=== PATIENT | female | born 2000 | race Two or more races ===

== ENCOUNTER → 2021-12-22 | Outpatient (CLI) | payer MEDICAID ==
[2021-12-22 09:41] LABS: Basophils # (auto) 0 10 ^3/uL (0-0.2); Basophils % (auto) 0.2 % (0.0-2.0); Eosinophils # (auto) 0.1 10 ^3/uL (0-0.8); Eosinophils % (auto) 0.7 % (0.0-7.0); Hematocrit 34.7 % (36.0-46.0); Hemoglobin 11.5 g/dL (12.2-16.2); Mean Corpuscular Hemoglobin 27.5 pg (28.0-32.0); Mean Corpuscular Volume 83.5 fL (80.0-100.0); Monocytes # (auto) 0.5 10 ^3/uL (0-1.3); Monocytes % (auto) 6.8 % (0.0-12.0); Neutrophils # (auto) 6.2 10 ^3/uL (1.6-8.6); Neutrophils % (auto) 79.3 % (37.0-80.0); Nucleated Red Blood Cells % 0.1 %; Red Blood Cells 4.16 10^6/uL (4.0-5.20); Red Cell Distribution Width 15.2 % (11.8-14.3); White Blood Cell 7.9 10^3/uL (4.4-10.8)
== END | disposition home or self-care (01) ==
LOC: LAB 09:24
PROVIDERS: ATTEND Obstetrics & Gynecology
DX: Z34.80 Encounter for supervision of other normal pregnancy, unspecified trimester (principal); Z3A.00 Weeks of gestation of pregnancy not specified
CPT/HCPCS: 36415; 82951; 85025; 86850; 86900; 86901

== ENCOUNTER → 2022-02-23 | Outpatient (CLI) | payer MEDICAID ==
[2022-02-23 10:33] LABS: Basophils # (auto) 0 10 ^3/uL (0-0.2); Basophils % (auto) 0.4 % (0.0-2.0); Eosinophils # (auto) 0.1 10 ^3/uL (0-0.8); Hematocrit 36.7 % (36.0-46.0); Hemoglobin 12.1 g/dL (12.2-16.2); Lymphocytes # (auto) 0.9 10 ^3/uL (0.4-5.4); Lymphocytes % (auto) 13.3 % (10.0-50.0); Mean Corpuscular Hemoglobin 28.2 pg (28.0-32.0); Mean Corpuscular Volume 85.5 fL (80.0-100.0); Monocytes # (auto) 0.5 10 ^3/uL (0-1.3); Monocytes % (auto) 7.1 % (0.0-12.0); Neutrophils # (auto) 5.4 10 ^3/uL (1.6-8.6); Neutrophils % (auto) 78.2 % (37.0-80.0); Nucleated Red Blood Cells % 0.3 %; Red Blood Cells 4.29 10^6/uL (4.0-5.20); White Blood Cell 6.9 10^3/uL (4.4-10.8)
[2022-02-24 07:06] LABS: RPR Non Reactive (Non Reactive)
== END | disposition home or self-care (01) ==
LOC: LAB 09:29
PROVIDERS: ATTEND Obstetrics & Gynecology
DX: Z34.80 Encounter for supervision of other normal pregnancy, unspecified trimester (principal); Z3A.00 Weeks of gestation of pregnancy not specified
CPT/HCPCS: 36415; 84112; 85025; 86592

== ENCOUNTER 2022-03-06 14:00 | Observation (INO) | payer MEDICAID ==
[~2022-03-06] VITALS: Ht 165.1 cm; Wt 85.3 kg
[2022-03-06] MEDS ORDERED: FERR-20 PO (15:25)
[2022-03-06] MEDS ORDERED: PREN-96 PO (15:25)
[2022-03-06] MEDS ORDERED: ALBUAER3 IN (16:03)
== END 2022-03-06 16:15 | disposition home or self-care (01) ==
LOC: LDRP 14:00
PROVIDERS: ADMIT Obstetrics & Gynecology; ATTEND Obstetrics & Gynecology
DX: O41.03X0 Oligohydramnios, third trimester, not applicable or unspecified (principal); Z3A.37 37 weeks gestation of pregnancy
CPT/HCPCS: 59025; 76818; 81002; 94760; G0378

== ENCOUNTER 2022-03-08 13:42 | Observation (INO) | payer MEDICAID ==
[~2022-03-08 13:42] MED LIST: ALBUAER3 IN; FERR-20 PO; PREN-96 PO
== END 2022-03-08 15:37 | disposition home or self-care (01) ==
LOC: UNDOADMOB 14:10 → LDRP 14:10
PROVIDERS: ADMIT Obstetrics & Gynecology; ATTEND Obstetrics & Gynecology
DX: O42.92 Full-term premature rupture of membranes, unspecified as to length of time between rupture and onset of labor (principal); Z3A.37 37 weeks gestation of pregnancy
CPT/HCPCS: 59025; 76818; 81002; 94760; G0378

== ENCOUNTER 2022-03-20 10:28 | Observation (INO) | payer MEDICAID | END 2022-03-20 12:05 | disposition home or self-care (01) | LOC: LDRP 10:28 | PROVIDERS: ADMIT Obstetrics & Gynecology; ATTEND Obstetrics & Gynecology | DX: O41.03X0 Oligohydramnios, third trimester, not applicable or unspecified (principal); Z3A.39 39 weeks gestation of pregnancy | CPT/HCPCS: 59025; 76818; 81002; 94760; G0378 ==

== ENCOUNTER 2022-03-22 09:57 | Inpatient (IN) | payer MEDICAID ==
[~2022-03-22] VITALS: Ht 162.6 cm; Wt 79.8 kg
[2022-03-22] MEDS ORDERED: PROMETHAZINE HCL 25 MG/ML 1ML IV PRN (10:45)
[2022-03-22] MEDS ORDERED: DERMOPLAST 60ML BOTTLE TOP PRN (10:45)
[2022-03-22] MEDS ORDERED: BUTORPHANOL TARTRATE 2 MG/1 ML VIAL IV PRN ×2 (10:45)
[2022-03-22] MEDS ORDERED: TERBUTALINE SULFATE 1 MG/ML 1ML VIAL SC PRN (10:45)
[2022-03-22] MEDS ORDERED: PHISODERM TOP SOLN 240ML BTL TOP PRN (10:45)
[2022-03-22] MEDS ORDERED: LIDOCAINE 2%HCL (LOCAL ANESTH.) INJ 20ML MDV IJ PRN (10:45)
[2022-03-22] MEDS ORDERED: WITCH HAZEL-GLYCERIN PAD TOP PRN (10:45)
[2022-03-22] MEDS ORDERED: LACT. RINGERS/OXYTOCIN 20UNITS 500 ML IV ONE ×2 (10:45→11:15)
[2022-03-22 11:05] LABS: Urine WBC None Seen /hpf (0 - 5)
[2022-03-22 11:19] LABS: Basophils # (auto) 0 10 ^3/uL (0-0.2); Basophils % (auto) 0.3 % (0.0-2.0); Eosinophils # (auto) 0 10 ^3/uL (0-0.8); Eosinophils % (auto) 0.4 % (0.0-7.0); Hematocrit 37.7 % (36.0-46.0); Hemoglobin 12.6 g/dL (12.2-16.2); Lymphocytes # (auto) 0.9 10 ^3/uL (0.4-5.4); Lymphocytes % (auto) 10.6 % (10.0-50.0); Mean Corpuscular Hemoglobin 28.8 pg (28.0-32.0); Mean Corpuscular Hgb Conc. 33.5 g/dL (32.0-36.0); Mean Corpuscular Volume 85.9 fL (80.0-100.0); Monocytes # (auto) 0.6 10 ^3/uL (0-1.3); Monocytes % (auto) 7.1 % (0.0-12.0); Neutrophils # (auto) 6.6 10 ^3/uL (1.6-8.6); Neutrophils % (auto) 81.6 % (37.0-80.0); Nucleated Red Blood Cells % 0.2 %; Red Blood Cells 4.39 10^6/uL (4.0-5.20); Red Cell Distribution Width 17.5 % (11.8-14.3)
[2022-03-22 11:22] LABS: Urine Bacteria NONE SEEN /hpf (None Seen); Urine Blood Negative /uL (Negative); Urine Specific Gravity 1.003 (1.001-1.035)
[2022-03-22 11:36] LABS: INR 0.93 (0.9-1.15); Partial Thromboplastin Time 31.3 sec (24.6-33.4)
[2022-03-22] MEDS ORDERED: ROPIVACAINE HCL 200 ML EPI SCH ×2 (11:45→12:30)
[2022-03-22] MEDS ORDERED: NALOXONE HCL 0.4 MG/ML VIAL IV ONE (11:45)
[2022-03-22] MEDS ORDERED: LACTATED RINGER'S 1,000 ML IV ONE (11:45)
[2022-03-22] MEDS ORDERED: ePHEDrine SULFATE 50 MG/ML AMP IV ONE (11:45)
[2022-03-22 12:13] LABS: Alcohol, Urine < 3.0 mg/dL (0-10); Amphetamine Screen, Urine NEGATIVE (NEGATIVE); Barbiturate Scree,Urine NEGATIVE (NEGATIVE); Benzodiazephine Screen, Urine NEGATIVE (NEGATIVE); Cannabinoid Screen, Urine NEGATIVE (NEGATIVE); Cocaine Screen, Urine NEGATIVE (NEGATIVE); Opiate Scree,Urine NEGATIVE (NEGATIVE); Phencyclidine Screen, Urine NEGATIVE (NEGATIVE)
[2022-03-22 12:24] LABS: Albumin 2.8 g/dL (3.4-5.0); BUN/Creatinine Ratio 12.3; Bilirubin, Total 0.4 mg/dL (0.2-1.0); Calcium 8.6 mg/dL (8.5-10.1); Total Protein 7.1 g/dL (6.4-8.2)
[2022-03-22] MEDS: LACTATED RINGER'S 1,000 ML IV SCH ×2 (12:26→16:03)
[2022-03-22] MEDS ORDERED: ONDANSETRON HCL 4 MG/2 ML VIAL IV PRN (15:00)
[2022-03-22] MEDS ORDERED: miSOPROStol 100 mcg TAB SL PRN (15:00)
[2022-03-22] MEDS ORDERED: DIPHENOXYLATE W/ATROPINE 2.5 MG TAB PO PRN (15:00)
[2022-03-22] MEDS ORDERED: CARBOPROST TROMETHAMINE 250 MCG/1ML VIAL IM PRN (15:00)
[2022-03-22] MEDS ORDERED: METHYLERGONOVINE MALEATE 0.2 MG/ML AMP IM PRN (15:00)
[2022-03-22] MEDS ORDERED: TRANEXAMIC ACID 1,000 MG in SODIUM CHL 0.9% 100 ML IV PRN (15:00)
[2022-03-22] MEDS ORDERED: diphenhdrAMINE HCL 50 MG/1 ML VL IV PRN (15:00)
[2022-03-22] MEDS ORDERED: ACETAMINOPHEN 650 MG RECT SUPP PR PRN (15:00)
[2022-03-22] MEDS ORDERED: ACETAMINOPHEN 325 MG TAB PO PRN (16:45)
[2022-03-22] MEDS ORDERED: ONDANSETRON ODT 4 MG TAB PO PRN (16:45)
[2022-03-22 19:00] VITALS: BP 132/84
[2022-03-22] MEDS: IBUPROFEN 600 MG TAB PO PRN (19:33)
[2022-03-22] MEDS ORDERED: DOCUSATE SOD 100 MG CAP PO SCH (22:00)
[2022-03-22 23:00] VITALS: BP 106/68
[2022-03-22] MEDS ORDERED: TETANUS-DIPTH-ACEL PERTUSSIS 0.5ML SYR Tdap IM ONE (23:45)
[2022-03-23] VITALS (7 sets, daily range): BP systolic 105–133; BP diastolic 68–76
[2022-03-23 05:42] LABS: Basophils # (auto) 0 10 ^3/uL (0-0.2); Basophils % (auto) 0.3 % (0.0-2.0); Eosinophils # (auto) 0.1 10 ^3/uL (0-0.8); Hematocrit 37.8 % (36.0-46.0); Hemoglobin 12.4 g/dL (12.2-16.2); Lymphocytes # (auto) 1.4 10 ^3/uL (0.4-5.4); Lymphocytes % (auto) 17.1 % (10.0-50.0); Mean Corpuscular Hemoglobin 28.2 pg (28.0-32.0); Mean Corpuscular Hgb Conc. 32.7 g/dL (32.0-36.0); Mean Corpuscular Volume 86.4 fL (80.0-100.0); Monocytes # (auto) 0.6 10 ^3/uL (0-1.3); Neutrophils % (auto) 73.6 % (37.0-80.0); Nucleated Red Blood Cells % 0.3 %; Red Blood Cells 4.38 10^6/uL (4.0-5.20); Red Cell Distribution Width 17.7 % (11.8-14.3); White Blood Cell 8.1 10^3/uL (4.4-10.8)
[2022-03-23] MEDS: IBUPROFEN 600 MG TAB PO PRN (07:14)
[2022-03-23 08:06] LABS: RPR Non Reactive (Non Reactive)
[2022-03-23] MEDS ORDERED: ACET325T10 PO (19:22)
[2022-03-23] MEDS ORDERED: IBU600T PO (19:22)
[2022-03-23] MEDS ORDERED: DOCU100C10 PO (19:22)
== END 2022-03-23 21:10 | disposition home or self-care (01) | DRG 560 ==
LOC: LDRP 09:57 → OBSVTOIN 10:41 → LDRP 11:21
PROVIDERS: ADMIT Obstetrics & Gynecology; ATTEND Obstetrics & Gynecology
PROC: 10E0XZZ Delivery of Products of Conception, External Approach (ICD-10-PCS; principal; 2022-03-22)
PROC: 0HQ9XZZ Repair Perineum Skin, External Approach (ICD-10-PCS; 2022-03-22)
PROC: 3E0R3BZ Introduction of Anesthetic Agent into Spinal Canal, Percutaneous Approach (ICD-10-PCS; 2022-03-22)
PROC: 00HU33Z Insertion of Infusion Device into Spinal Canal, Percutaneous Approach (ICD-10-PCS; 2022-03-22)
DX: O99.02 Anemia complicating childbirth (principal); Z37.0 Single live birth; D64.9 Anemia, unspecified; Z20.822 Contact with and (suspected) exposure to COVID-19; O70.0 First degree perineal laceration during delivery; O99.52 Diseases of the respiratory system complicating childbirth; Z3A.39 39 weeks gestation of pregnancy; J45.909 Unspecified asthma, uncomplicated
CPT/HCPCS: 36415; 59025; 59409; 62282; 80053; 80307; 81001; 81002; 85025; 85610; 85730; 86592; 86850; 86870; 86900; 86901; 87426; 90384; 90715; 94760; 96360; 96361; 96372; G0378; J2590

== ENCOUNTER 2022-03-26 14:02 | Emergency (ER) | payer MEDICAID ==
[~2022-03-26] VITALS: Ht 160 cm; Wt 79.9 kg
[~2022-03-26 14:02] MED LIST changes: +ACET325T10 PO; +DOCU100C10 PO; -FERR-20 PO; +IBU600T PO
[2022-03-26] MEDS ORDERED: IBUPROFEN 800 MG TAB PO ONE (14:15)
[2022-03-26 14:42] LABS: Basophils # (auto) 0 10 ^3/uL (0-0.2); Basophils % (auto) 0.3 % (0.0-2.0); Eosinophils # (auto) 0 10 ^3/uL (0-0.8); Eosinophils % (auto) 0.5 % (0.0-7.0); Hematocrit 39.4 % (36.0-46.0); Hemoglobin 13.5 g/dL (12.2-16.2); Lymphocytes # (auto) 0.6 10 ^3/uL (0.4-5.4); Lymphocytes % (auto) 6.2 % (10.0-50.0); Mean Corpuscular Hemoglobin 29.3 pg (28.0-32.0); Mean Corpuscular Hgb Conc. 34.2 g/dL (32.0-36.0); Mean Corpuscular Volume 85.6 fL (80.0-100.0); Monocytes # (auto) 0.5 10 ^3/uL (0-1.3); Monocytes % (auto) 5.4 % (0.0-12.0); Neutrophils # (auto) 8.5 10 ^3/uL (1.6-8.6); Neutrophils % (auto) 87.6 % (37.0-80.0); Nucleated Red Blood Cells % 0.2 %; Red Blood Cells 4.61 10^6/uL (4.0-5.20); Red Cell Distribution Width 17.3 % (11.8-14.3); White Blood Cell 9.7 10^3/uL (4.4-10.8)
[2022-03-26 15:04] LABS: Albumin 2.9 g/dL (3.4-5.0); Potassium 3.9 mmol/L (3.5-5.1)
[2022-03-26 15:08] LABS: BUN/Creatinine Ratio 13.2; Bilirubin, Total 0.3 mg/dL (0.2-1.0); Total Protein 6.7 g/dL (6.4-8.2)
[2022-03-26 15:39] LABS: Urine Amorphous Crystal FEW /hpf (None Seen); Urine Bacteria FEW /hpf (None Seen); Urine Blood 3+ /uL (Negative); Urine Specific Gravity 1.009 (1.001-1.035); Urine WBC 239 /hpf (0 - 5); Urine WBC Clumps PRESENT /hpf (None Seen)
[2022-03-26] MEDS ORDERED: cefTRIAXone SOD 1,000 MG VL IM ONE (16:30)
[2022-03-26] MEDS ORDERED: LIDOCAINE 1% HCL (LOCAL ANESTH.) INJ 20ML MDV ONE (17:08)
[2022-03-26] MEDS ORDERED: IBUP800T26 PO (18:51)
[2022-03-26] MEDS ORDERED: CEPH-510 PO (18:51)
[2022-03-26] MEDS ORDERED: ACET-1079 PO (18:51)
[2022-03-26 19:33] VITALS: BP 124/76
== END 2022-03-26 19:36 | disposition home or self-care (01) ==
LOC: ER 14:02
DX: N61.0 Mastitis without abscess (principal); N39.0 Urinary tract infection, site not specified; Z79.1 Long term (current) use of non-steroidal anti-inflammatories (NSAID); Z79.899 Other long term (current) drug therapy
CPT/HCPCS: 36415; 76642; 80053; 81001; 83605; 85025; 96372; 99284; J0696; J2001

== ENCOUNTER 2023-09-11 10:32 | Emergency (ER) | payer MEDICAID ==
[~2023-09-11] VITALS: Ht 162.6 cm; Wt 75.3 kg
[~2023-09-11 10:32] MED LIST changes: +ACET-1079 PO; +ACET-1882 PO; -ACET325T10 PO; +CEPH-510 PO; +DOCU-265 PO; -DOCU100C10 PO; +IBUP-1455 PO
[2023-09-11 11:28] VITALS: BP 126/85; PULSE 95; RESP 16; TEMP 98.6; O2SAT 98
[2023-09-11] MEDS ORDERED: BACDST PO (12:28)
[2023-09-11] MEDS: cefTRIAXone SOD 1,000 MG VL IM ONE (12:37)
== END 2023-09-11 12:47 | disposition home or self-care (01) ==
LOC: ER 10:32
DX: L03.012 Cellulitis of left finger (principal)
CPT/HCPCS: 96372; 99283; J0696